=== PATIENT | female | born 1990 | race Caucasian/White ===

== ENCOUNTER 2019-09-16 19:00 | Emergency (ER) | payer MEDICAID ==
[~2019-09-16] VITALS: Ht 154.9 cm; Wt 65.5 kg
[2019-09-16 19:20] VITALS: BP 139/93
== END 2019-09-16 21:01 | disposition left against medical advice (07) ==
LOC: ER 19:01
DX: K13.79 Other lesions of oral mucosa (principal); Z53.21 Procedure and treatment not carried out due to patient leaving prior to being seen by health care provider

== ENCOUNTER 2023-09-24 17:12 | Emergency (ER) | payer MEDICAID | END 2023-09-24 20:16 | disposition left against medical advice (07) | LOC: ER 17:13 | DX: T81.9XXA Unspecified complication of procedure, initial encounter (principal); Z53.21 Procedure and treatment not carried out due to patient leaving prior to being seen by health care provider ==